=== PATIENT | female | born 1980 | race American Indian/Alaskan Native ===

== ENCOUNTER 2016-04-15 23:44 | Emergency (ER) | payer BC ==
[2016-04-16 01:04] LABS: Basophils % (Auto) 0.4 % (0.0-1.8); Eosinophils % (Auto) 0.9 % (0.0-4.3); Hematocrit 37.7 % (30.3-42.9); Hemoglobin 12.2 gm/dl (10.1-14.3); Mean Corpuscular HGB Conc 32 % (30-34); Mean Corpuscular Volume 73 fl (79-97); Platelet Count 296 K/mm3 (140-440); Red Blood Count 5.14 M/mm3 (3.65-5.03); White Blood Count 7.1 K/mm3 (4.5-11.0)
[2016-04-16 01:12] LABS: Mean Corpuscular Hemoglobin 24 pg (28-32)
[2016-04-16 01:26] LABS: Blood Urea Nitrogen 12 mg/dL (7-17); Calcium 8.7 mg/dL (8.4-10.2); Carbon Dioxide 25 mmol/L (22-30); Chloride 102.6 mmol/L (98-107); Glucose 109 mg/dL (65-100); Potassium 3.5 mmol/L (3.6-5.0); Sodium 141 mmol/L (137-145)
[2016-04-16 01:27] LABS: Anion Gap 17 mmol/L
[2016-04-16 02:09] VITALS: BP 127/81
--- NOTE | 2016-04-16 03:19 | XRay Report ---
FINAL REPORT PROCEDURE: XR CHEST ROUTINE 2V TECHNIQUE: PA and lateral chest radiographs were obtained. CPT 14522 HISTORY: cough, chest tightness, fever COMPARISON: No prior studies are available for comparison. FINDINGS: Heart: Normal. Mediastinum/Vessels: Normal. Lungs/Pleural space: Normal. Bony thorax: No acute osseous abnormality. Other: IMPRESSION: Normal examination.
--- NOTE | 2016-04-16 03:27 | Emergency Department Report ---
ED General Adult HPI - General Chief complaint: Chest Pain Stated complaint: CHEST DISCOMFORT Time Seen by Provider: 04/16/16 03:19 Source: patient Mode of arrival: Ambulatory Limitations: No Limitations - History of Present Illness Initial comments: 35-year-old female comes in for complaint of chest pains. Patient and knowledge that she had pneumonia about 2 months ago. 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 She has 3 boys ages 1113 and 15. She reports that she is under a lot of stress. She recently moved here from [place]. She denies any radiation of the chest pain. She denies any shortness of breathing or nausea no vomiting or diaphoresis. She reported to me that now she has no chest discomfort. She does report that at times she feels overwhelmed. Especially that she is in a new city. She moves to get away from her children's father. - Related Data Previous Rx's Medication Instructions Recorded Last Taken Type Citalopram [celeXA] 20 mg PO QDAY #30 tablet 04/16/16 Unknown Rx Allergies Allergy/AdvReac Type Severity Reaction Status Date / Time No Known Allergies Allergy Verified 04/16/16 00:19 ED Review of Systems ROS: Stated complaint: CHEST DISCOMFORT Other details as noted in HPI Constitutional: denies: chills, fever, malaise, weakness Respiratory: denies: cough, shortness of breath, SOB with exertion Cardiovascular: chest pain (not currently), palpitations (chest fluttering) Psychiatric: anxiety. denies: auditory hallucinations, visual hallucinations, homicidal thoughts ED Past Medical Hx - Past Medical History Previous Medical History?: Yes Additional medical history: anxiety - Surgical History Past Surgical History?: Yes Additional Surgical History: gallbladder - Social History Smoking Status: Never Smoker Substance Use Type: None - Medications Home Medications: Home Medications Medication Instructions Recorded Confirmed Last Taken Type Citalopram [celeXA] 20 mg PO QDAY #30 tablet 04/16/16 Unknown Rx ED Physical Exam - General Limitations: No Limitations - Head Head exam: Present: atraumatic, normocephalic - Respiratory Respiratory exam: Present: normal lung sounds bilaterally. Absent: respiratory distress - Cardiovascular Cardiovascular Exam: Present: regular rate, normal rhythm, normal heart sounds. Absent: irregular rhythm - Extremities Exam Extremities exam: Absent: tenderness, pedal edema ED Course Vital Signs 04/16/16 04/16/16 00:08 02:08 Temperature 97.9 F Pulse Rate 92 H 85 Respiratory 22 16 Rate Blood Pressure 154/102 Blood Pressure 127/81 [Left] O2 Sat by Pulse 98 95 Oximetry ED Medical Decision Making - Lab Data Result diagrams: 04/16/16 00:50 04/16/16 00:50 - Radiology Data Radiology results: image reviewed FINAL REPORT PROCEDURE: XR CHEST ROUTINE 2V TECHNIQUE: PA and lateral chest radiographs were obtained. CPT 35159 HISTORY: cough, chest tightness, fever COMPARISON: No prior studies are available for comparison. FINDINGS: Heart: Normal. Mediastinum/Vessels: Normal. Lungs/Pleural space: Normal. Bony thorax: No acute osseous abnormality. Other: IMPRESSION: Normal examination. - Medical Decision Making Patient evaluated by this provider. She's had lab work done as negative for her troponin, normal WBCs, BMP within normal limits. Chest x-ray done shows no abnormalities. Discharge patient home with referral to her market analysis director as well as her primary care provider. Discussed patient that she is most likely have been some anxiety. Discussed with her breathing methods, taken, for self. Critical care attestation.: If time is entered above; I have spent that time in minutes in the direct care of this critically ill patient, excluding procedure time. ED Disposition Clinical Impression: Anxiety Disposition: DISCHARGED TO HOME OR SELFCARE Is pt being admited?: No Does the pt Need Aspirin: No Condition: Stable Instructions: Anxiety (ED) Additional Instructions: Very important for you to follow up with the primary care provider. Also on her recommended to have a follow the market analysis director's. Prescriptions: Citalopram [celeXA] 20 mg PO QDAY #30 tablet Referrals: PAT OG MD [Primary Care Provider] - 3-5 Days ALYSSA MCCULLOUGH MD [Staff Physician] - 3-5 Days Forms: Work/School Release Form(ED)
== END 2016-04-16 03:45 | disposition home or self-care (01) ==
LOC: ED 23:44
DX: F41.9 Anxiety disorder, unspecified (principal)
CPT/HCPCS: 36415; 71020; 80048; 84484; 85025; 87040; 93005; 93010